=== PATIENT | male | born 1990 | race African-American/Black ===

== ENCOUNTER 2018-11-25 23:50 | Inpatient (IN) | payer SELFPAY ==
[2018-11-25] MEDS ORDERED: LORazepam TAB(*) 1 MG PO PRN (23:56)
[2018-11-25] MEDS ORDERED: Nicotine Inhaler* 10 MG AMP INH PRN (23:56)
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
[2018-11-26 00:17] LABS: Hematocrit 45 % (42-52); Hemoglobin 14.8 g/dl (14.0-18.0); Mean Corpuscular HGB Conc 33 g/dl (31-36); Mean Corpuscular Hemoglobin 23 pg (27-31); Mean Corpuscular Volume 71 fL (80-94); Mean Platelet Volume 7.8 fL (7.4-10.4); Platelet Count 305 10^3/ul (150-450); Red Blood Count 6.38 10^6/ul (4.00-5.40); Red Cell Distribution Width 16 % (10.5-15); White Blood Count 4.8 10^3/ul (3.5-10.8)
[2018-11-26] MEDS ORDERED: Mouth Piece, Nicotine* 1 EACH CARTRIDGE INH PRN (00:20)
[2018-11-26 00:29] LABS: ALT 47 U/L (7-52); AST 20 U/L (13-39); Albumin 5.2 g/dL (3.2-5.2); Alkaline Phosphatase 89 U/L (34-104); Anion Gap 9 mmol/L (2-11); BUN/Creatinine Ratio 12.3 (8-20); Blood Urea Nitrogen 18 mg/dL (6-24); CO2 Carbon Dioxide 24 mmol/L (22-32); Calcium 10.2 mg/dL (8.6-10.3); Chloride 103 mmol/L (101-111); EGFR Non-African American 56.7 (>60); Globulin 2.6 g/dL (2-4); Glucose 179 mg/dL (70-100); Sodium 136 mmol/L (135-145); Total Protein 7.8 g/dL (6.4-8.9)
[2018-11-26 00:41] LABS: Barbiturates Urine Screen None Detected (None Detect); Benzodiazepine Urine Screen None Detected (None Detect); Urine Cannabinoids Screen Presumptive Positive (None Detect)
[2018-11-26 00:44] LABS: Urine Color Yellow
[2018-11-26 00:51] LABS: Alcohol < 10 mg/dL (<10)
[2018-11-26 00:53] LABS: ABS Basophils 0 10^3/ul (0-0.2); ABS Eosinophils 0 10^3/ul (0-0.6); ABS Lymphocytes 0.8 10^3/ul (1.0-4.8); ABS Monocytes 0.4 10^3/ul (0-0.8); ABS Neutrophils 3.6 10^3/ul (1.5-7.7); ABS Nucleated RBC 0 10^3/ul; Eosinophil % 0 %; Lymphocyte % 17.4 %; Microcytosis 1+; Nucleated Red Blood Cells % 0.1
[2018-11-26 01:02] LABS: Urine Appearance Clear; Urine Bacteria Absent (Absent); Urine Bilirubin Negative (Negative); Urine Blood Negative (Negative); Urine Glucose Negative (Negative); Urine Ketones Trace (Negative); Urine Nitrite Negative (Negative); Urine Protein 2+(100 mg/dL) (Negative); Urine Red Blood Cell Absent (Absent); Urine Specific Gravity 1.032 (1.010-1.030); Urine Urobilinogen Negative (Negative); Urine White Blood Cell Trace(0-5/hpf) (Absent)
[2018-11-26 01:06] LABS: TSH (Thyroid Stimulating Horm) 0.69 mcIU/mL (0.34-5.60)
[2018-11-26] MEDS ORDERED: Nicotine GUM* 2 MG PO PRN (05:07)
[2018-11-26] MEDS ORDERED: Al Hydrox/Mg Hydrox/Simet LIQ* 30 ML UDC PO PRN (05:08)
[2018-11-26 10:57] LABS: Hepatitis B Surface AB Immune (Immune)
--- NOTE | 2018-11-26 11:32 | PN ---
MHU: Group Therapy Note - Service Type Service Type: [id number] Group Psychotherapy - Cognitive Behavioral Group Therapy ( CBT):Patient presented in CBT programming as disorganized and disruptive in discussion and needed repeated redirection to attend to presented materials.
[2018-11-26 11:34] LABS: Hepatitis C Antibody Nonreactive (Nonreactive)
[2018-11-26] MEDS: Multivitamins/Minerals TAB PO SCH (11:36)
[2018-11-26] MEDS ORDERED: LORazepam TAB(*) 1 MG PO PRN (12:14)
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
[2018-11-26] MEDS: ARIPiprazole TAB* 5 MG PO SCH (21:52)
[2018-11-27] MEDS: Multivitamins/Minerals TAB PO SCH (10:58)
--- NOTE | 2018-11-27 10:59 | PN ---
MHU: Group Therapy Note - Service Type Service Type: 81902 Group Psychotherapy - Cogntive Behavioral group note: Vu was attentive and particpatory in cbt programming this morning. He struggled with being drowsy but was topical in conversation. He did not express any gnosticism content that characterized his presentation in yesterday' s group. He was encouraged to sleep if needed today.
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
[2018-11-27] MEDS: LORazepam TAB(*) 1 MG PO SCH (21:40)
[2018-11-27] MEDS: ARIPiprazole TAB* 5 MG PO SCH (21:41)
[2018-11-28] MEDS: Multivitamins/Minerals TAB PO SCH (11:03)
--- NOTE | 2018-11-28 11:32 | PN ---
MHU: Group Therapy Note - Service Type Service Type: [id number] Group Psychotherapy - Cognitive Behavioral Group Therapy ( CBT):Patient was attentive and participatory in CBT programming this morning, and remained in good behavioral control. Patient expressed positive insights regarding relevant treatment interventions and goals. Vu expresses positive insights regarding presenting symptoms, diagnosis and need for medication compliance.
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
[2018-11-28] MEDS: LORazepam TAB(*) 1 MG PO SCH (21:00)
[2018-11-28] MEDS: ARIPiprazole TAB* 5 MG PO SCH (21:00)
[2018-11-28] MEDS: Polyethylene Glycol 3350* 17 GM PACKET PO SCH ×3 (21:01→21:18)
[2018-11-29] MEDS: Polyethylene Glycol 3350* 17 GM PACKET PO SCH ×2 (10:11→20:27)
[2018-11-29] MEDS: Multivitamins/Minerals TAB PO SCH (10:11)
[2018-11-29] MEDS: ARIPiprazole TAB* 5 MG PO SCH (20:25)
[2018-11-29] MEDS: LORazepam TAB(*) 1 MG PO SCH (20:25)
[2018-11-29] MEDS: Acetaminophen TAB* 325 MG PO PRN (20:26)
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
[2018-11-30] MEDS: Multivitamins/Minerals TAB PO SCH (11:53)
[2018-11-30] MEDS: Polyethylene Glycol 3350* 17 GM PACKET PO SCH ×2 (11:53→20:04)
[2018-11-30] MEDS: ARIPiprazole TAB* 5 MG PO SCH (20:04)
[2018-11-30] MEDS: LORazepam TAB(*) 1 MG PO SCH (20:05)
[2018-12-01] MEDS: Polyethylene Glycol 3350* 17 GM PACKET PO SCH ×2 (08:37→21:28)
[2018-12-01] MEDS: Multivitamins/Minerals TAB PO SCH (08:37)
--- NOTE | 2018-12-01 16:32 | PN ---
Progress Note - Progress Note Date of Service: 12/01/18 Note: Per nursing reports Vu is doing fine psychiatrically without evidence of mood, thoughts or perceptual disturbances. Also denies violent thoughts towards self or others. He has been compliant with unit rules and meds. He is looking forwards to discharge to law enforcements as planned. Plan is to continue current treatments and discharge decisions.
[2018-12-01] MEDS: LORazepam TAB(*) 1 MG PO SCH (21:28)
[2018-12-01] MEDS: ARIPiprazole TAB* 5 MG PO SCH (21:28)
[2018-12-01] MEDS: Acetaminophen TAB* 325 MG PO PRN (21:30)
[2018-12-02 09:08] VITALS: BP 118/73
[2018-12-02] MEDS: Multivitamins/Minerals TAB PO SCH (09:09)
[2018-12-02] MEDS: Polyethylene Glycol 3350* 17 GM PACKET PO SCH (09:09)
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
== END 2018-12-02 14:10 | DRG 885 ==
LOC: ED 23:50 → BSU 11-26 05:00
PROVIDERS: ADMIT Psychiatry & Neurology Psychiatry; ATTEND Psychiatry & Neurology Psychiatry
DX: F31.9 Bipolar disorder, unspecified (principal); F90.9 Attention-deficit hyperactivity disorder, unspecified type
CPT/HCPCS: 36415; 80053; 80307; 80320; 81003; 81015; 84443; 85025; 85660; 86703; 86706; 86803; 87086; 90853; 99222; 99231; 99232; 99238; 99285; A9270-GY; G0480